=== PATIENT | male | born 1955 | race Caucasian/White ===

== ENCOUNTER 2021-09-09 11:26 | Emergency (ER) | payer MEDICARE ==
[2021-09-09] MEDS ORDERED: Sodium Chloride 0.9% 10 ML Syringe FLUSH PRN (11:49)
--- NOTE | 2021-09-09 12:02 | EDM.PDOC ---
ED HPI GENERAL MEDICAL PROBLEM - General Chief Complaint: Respiratory Problem Stated Complaint: COVID + LOW OXYGEN Time Seen by Provider: 09/09/21 11:38 Source of Information: Reports: Patient, RN Notes Reviewed History Limitations: Reports: No Limitations - History of Present Illness INITIAL COMMENTS - FREE TEXT/NARRATIVE: Patient is a 66-year-old male who presents to the ER for his ongoing COVID-19 symptoms. States he has been sick for about 14 days now. He did get tested for COVID-19 2 days ago in [facility] and it did return positive. States that he was sent home on oral steroids. So he has been on 2 days of steroids. States that as he has been home, his O2 sats do not seem to be improving. He states anytime he does any small amount of activity they do decrease to high 70s low 80s but then do recover to the upper 80s and lower 90s. At the time of triage his O2 sats were 80% on room air; he was placed on 2 L via nasal cannula, and this did improve his O2 sats to 95%. Patient does not look visibly dyspneic. States that he has been using albuterol inhalers/nebulizers at home as he has a history of asthma. States that they were helping initially but he does not think that they are helping much anymore. States that he did not seek care initially as he has had pneumonia a few times and he said that this felt almost exactly like when he had pneumonia in the past. Notes that he did have some lab work and a chest x-ray done 2 days ago as well; states that they told him he had bilateral viral pneumonia at that time. States he has had some mild fevers, some chills, body aches, a cough that is nonproductive, some shortness of breath but no nausea/vomiting/diarrhea. Patient also denying any sort of chest pain. - Related Data Allergies Allergy/AdvReac Type Severity Reaction Status Date / Time No Known Allergies Allergy Verified 09/09/21 11:46 Home Meds: Home Meds Calcium Carbonate [Calcium] 500 mg PO DAILY 09/09/21 [History] Cholecalciferol (Vitamin D3) [Vitamin D3] 2,000 unit PO DAILY 09/09/21 [History] Digoxin 250 mcg PO DAILY 09/09/21 [History] Doxycycline [Vibramycin] 100 mg PO BID 7 Days #14 tab 09/09/21 [Rx] Ferrous Sulfate [Iron] 325 mg PO DAILY 09/09/21 [History] Fish Oil/DHA/EPA [Fish Oil 1,200 MG] 1 cap PO DAILY 09/09/21 [History] Levothyroxine Sodium [Levothyroxine] 200 mcg PO DAILY 09/09/21 [History] Mecobalamin [B12 Active] 1,000 mcg PO DAILY 09/09/21 [History] Metoprolol Tartrate 50 mg PO DAILY 09/09/21 [History] Multivitamin 2 each PO DAILY 09/09/21 [History] Pantoprazole Sodium [Protonix] 40 mg PO DAILY 09/09/21 [History] Potassium Gluconate [Potassium] 550 mg PO DAILY 09/09/21 [History] Spironolactone [Aldactone] 12.5 mg PO DAILY 09/09/21 [History] atorvaSTATin [Lipitor] 20 mg PO DAILY 09/09/21 [History] Past Medical History Respiratory History: Reports: Asthma Social & Family History - Tobacco Use Tobacco Use Status *Q: Never Tobacco User - Caffeine Use Caffeine Use: Reports: None - Recreational Drug Use Recreational Drug Use: No ED ROS GENERAL - Review of Systems Review Of Systems: Comprehensive ROS is negative, except as noted in HPI. ED EXAM, GENERAL - Physical Exam Exam: See Below Exam Limited By: No Limitations General Appearance: Alert, WD/WN, No Apparent Distress Respiratory/Chest: No Respiratory Distress, Lungs Clear, Normal Breath Sounds, No Accessory Muscle Use, Chest Non-Tender Cardiovascular: Normal Peripheral Pulses, Regular Rate, Rhythm, No Edema Peripheral Pulses: 2+: Radial (L), Radial (R) GI/Abdominal: Normal Bowel Sounds, Soft, Non-Tender, No Distention, No Mass Extremities: Normal Inspection, Normal Capillary Refill Neurological: Alert, Oriented, Normal Cognition, No Motor/Sensory Deficits Psychiatric: Normal Affect, Normal Mood Skin Exam: Warm, Dry, Intact, Normal Color, No Rash Course - Vital Signs Last Recorded V/S: Last Vital Signs Temp 97.8 F 09/09/21 11:38 Pulse 96 09/09/21 11:38 Resp 31 H 09/09/21 12:42 BP 112/77 09/09/21 12:42 Pulse Ox 94 L 09/09/21 12:42 - Orders/Labs/Meds Orders: Active Orders 24 hr Category Date Time Status Oxygen Therapy [RC] ASDIRECTED Care 09/09/21 11:49 Active Chest 1V Frontal [CR] Stat Exams 09/09/21 11:49 Taken Sodium Chloride 0.9% [Saline Flush] Med 09/09/21 11:49 Active 10 ml FLUSH ASDIRECTED PRN Isolation [COMM] Routine Oth 09/09/21 11:49 Ordered Saline Lock Insert [OM.PC] Stat Oth 09/09/21 11:49 Ordered Medication Orders Sodium Chloride (Sodium Chloride 0.9% 10 Ml Syringe) 10 ml FLUSH ASDIRECTED PRN PRN Reason: Keep Vein Open Last Admin: 09/09/21 12:25 Dose: 10 ml Documented by: ANABEL Labs: Laboratory Tests 09/09/21 09/09/21 09/09/21 Range/Units 11:55 11:55 11:55 WBC 17.75 H (4.23-9.07) K/mm3 RBC 4.17 L (4.63-6.08) M/mm3 Hgb 13.8 (13.7-17.5) gm/dl Hct 41.2 (40.1-51.0) % MCV 98.8 H (79.0-92.2) fl MCH 33.1 H (25.7-32.2) pg MCHC 33.5 (32.2-35.5) g/dl RDW Std Deviation 46.6 H (35.1-43.9) fL Plt Count 223 (163-337) K/mm3 MPV 10.4 (9.4-12.3) fl Neut % (Auto) 90.1 H (34.0-67.9) % Lymph % (Auto) 3.5 L (21.8-53.1) % Park % (Auto) 5.0 L (5.3-12.2) % Eos % (Auto) 0.1 L (0.8-7.0) Baso % (Auto) 0.3 (0.1-1.2) % Neut # (Auto) 16.01 H (1.78-5.38) K/mm3 Lymph # (Auto) 0.63 L (1.32-3.57) K/mm3 Park # (Auto) 0.88 H (0.30-0.82) K/mm3 Eos # (Auto) 0.01 L (0.04-0.54) K/mm3 Baso # (Auto) 0.05 (0.01-0.08) K/mm3 Manual Slide Review Abnormal smear D-Dimer, Quantitative 4.42 H (0.19-0.50) mg/L Sodium 137 (136-145) mEq/L Potassium 4.7 (3.5-5.1) mEq/L Chloride 102 (98-107) mEq/L Carbon Dioxide 25 (21-32) mEq/L Anion Gap 14.7 (5-15) BUN 18 (7-18) mg/dL Creatinine 0.9 (0.7-1.3) mg/dL Est Cr Clr Drug Dosing 84.49 mL/min Estimated GFR (MDRD) > 60 (>60) mL/min BUN/Creatinine Ratio 20.0 H (14-18) Glucose 109 H (70-99) mg/dL Calcium 8.8 (8.5-10.1) mg/dL Total Bilirubin 0.6 (0.2-1.0) mg/dL AST 63 H (15-37) U/L ALT 42 (16-63) U/L Alkaline Phosphatase 101 (46-116) U/L C-Reactive Protein 1.4 H* (<1.0) mg/dL Total Protein 7.7 (6.4-8.2) g/dl Albumin 2.6 L (3.4-5.0) g/dl Globulin 5.1 gm/dL Albumin/Globulin Ratio 0.5 L (1-2) Meds: Medications Generic Name Dose Route Start Last Admin Trade Name Freq PRN Reason Stop Dose Admin Sodium Chloride 10 ml 09/09/21 11:49 09/09/21 12:25 Sodium Chloride 0.9% 10 Ml Syringe FLUSH 10 ml ASDIRECTED PRN Administration Keep Vein Open - Re-Assessments/Exams Free Text/Narrative Re-Assessment/Exam: 09/09/21 12:02 Patient presents to the ER for evaluation of his COVID-19 and hypoxia. We will go ahead and repeat a chest x-ray, some basic labs as we do not have access to the [facility]'s work-up. Patient's O2 sats were initially low at the time of triage around 80% on room air. He was placed on 2 L via nasal cannula and this did improve his oxygenation to 95%. Patient is already on oral steroids. If the patient remains stable on the 2 L plan would be to hopefully send him home with outpatient oxygen; patient verbalized understanding and acknowledgment of this plan. 09/09/21 12:41 Patient's labs have resulted, CBC is elevated at 17.75 with 90% neutrophils, metabolic panel essentially unremarkable, CRP elevated at 1.4, D-dimer elevated at 4.42. Again he does have ongoing COVID-19 with oral steroid use the white count could be explained by that. I will offer to do a CT to the patient to rule out a PE due to his elevated D-dimer, and low O2 sats. We could send the patient home on a course of a azithromycin as well to cover for atypical pneumonias due to the 90% neutrophil count on the patient's CBC. 09/09/21 12:56 I was able to speak with the patient's daughter, and she states that he did have a CT done at the [place] visit, because of an elevated D-dimer and that the CT was negative. Patient states that he is also on oral Eliquis as well. Patient would decline a CTA for further evaluation due to having one done 2 days ago. We will go ahead and get him set up for home oxygen, and a course of oral antibiotics for ongoing management. Patient again is okay with this plan and does agree to return if worsening. Departure - Departure Time of Disposition: 12:57 Disposition: Home, Self-Care 01 Condition: Good Clinical Impression: COVID-19, Hypoxia, Pneumonia due to COVID-19 virus - Discharge Information *PRESCRIPTION DRUG MONITORING PROGRAM REVIEWED*: No *COPY OF PRESCRIPTION DRUG MONITORING REPORT IN PATIENT THALIA: No Instructions: Prone Position Therapy, 10 Things You Can Do to Manage Your COVID-19 Symptoms at Home - [facility] [place][NOTE 3] (04/16/2021) Referrals: PCP,Not In Area [Primary Care Provider] - Forms: ED Department Discharge Additional Instructions: You were seen in the ER today for ongoing and/or worsening respiratory symptoms. Your chest x-ray showed signs of bilateral at this time. Your oxygen levels were low at 80% on room air but did improve to 95% on 2 L via nasal cannula. You are being set up with oxygen for outpatient use. You are to use 2 L via nasal cannula at all times, please also continue to check your oxygen saturations at home if they should decrease; you may turn the oxygen up to 4 L only, if you should need more than 4 L you will need to go to the nearest hospital for further evaluation. It may be likely that you should only need oxygen for about 1 month, but again COVID has been a fairly unpredictable disease so timeline for needing his oxygen is quite undetermined at this time but again you should hopefully clinically improve and be able to get off oxygen in the near future. Laboratory evaluation was also concerning for possible overlying bacterial pneumonia due to the results of your CBC. You have been started on an oral antibiotic doxycycline 1 tablet 2 times a day for 7 days. This medication was electronically sent to the [facility] located in [facility], [place]. If they are not open by the time you get home today, you may fill this prescription tomorrow to continue as prescribed. Please try to increase your oral fluid intake, and eat multiple small meals throughout the day, to keep yourself healthy. You need to keep yourself nourished in order to fight off this disease. You can try a liquid diet like gatorade/powerade as well to get your electrolytes. You may take 500 mg Tylenol every hours 6 hours for pain/fever relief. Do not e xceed 4000 mg Tylenol in a 24-hour time span. However, running a fever is your body's natural response to illness, and it allows the body to develop antibodies to disease, we are recommending trying to limit the use of Tylenol as much as possible to allow your body's natural immune response. Recommend you obtain a pulse oximeter and monitor your oxygen levels at home, you should place the monitor on your finger, and sit in a calm, quiet position for a few minutes and then record the number that is on the screen. If this consistently below 90% on room air without movement, this would be cause for concern to come back to the hospital for further management of your COVID-19 disease. Thank you for allowing and choosing us to be involved in your healthcare needs. Sepsis Event Note (ED) - Focused Exam Vital Signs: Vital Signs Temp Pulse Resp BP Pulse Ox Pulse Ox 09/09/21 12:42 31 H 112/77 94 L 09/09/21 11:53 92 L 09/09/21 11:49 92 L 12/09/21 11:38 97.8 F 96 24 H 107/73 80 L - My Orders Last 24 Hours: My Active Orders 09/09/21 11:49 Oxygen Therapy [RC] ASDIRECTED Chest 1V Frontal [CR] Stat Sodium Chloride 0.9% [Saline Flush] 10 ml FLUSH ASDIRECTED PRN Isolation [COMM] Routine Saline Lock Insert [OM.PC] Stat - Assessment/Plan Last 24 Hours: My Active Orders 09/09/21 11:49 Oxygen Therapy [RC] ASDIRECTED Chest 1V Frontal [CR] Stat Sodium Chloride 0.9% [Saline Flush] 10 ml FLUSH ASDIRECTED PRN Isolation [COMM] Routine Saline Lock Insert [OM.PC] Stat
--- NOTE | 2021-09-09 13:19 | CR ---
Chest: Portable view of the chest was obtained. Comparison: No prior chest imaging is available. Patchy areas of increased density are seen within both lungs. Heart is slightly enlarged. Upper mediastinum is normal. Bony structures show an old left clavicle fracture which is healed. Impression: 1. Diffuse increased density scattered within both lungs most likely representing COVID - 19 pneumonia. 2. Other incidental findings as described above. Diagnostic code #3
== END 2021-09-09 15:30 | disposition home or self-care (01) ==
LOC: JD.ED 11:26
DX: U07.1 COVID-19 (principal); J12.82 Pneumonia due to coronavirus disease 2019; R09.02 Hypoxemia
CPT/HCPCS: 36415; 71045; 71045-26; 80053; 85025; 85379; 86140; 94762; 99284-25; 99285